=== PATIENT | female | born 1980 | race Caucasian/White ===

== ENCOUNTER 2018-02-13 16:18 | Inpatient (IN) | payer BC, OTHER ==
[~2018-02-13] VITALS: Ht 172.7 cm; Wt 54.4 kg
[2018-02-13] MEDS ORDERED: THIAMINE HCL 200 MG/2 ML VIAL IM ONE (18:15)
[2018-02-13] MEDS ORDERED: LOPERAMIDE HCL 2 MG CAPSULE PO PRN ×2 (18:15)
[2018-02-13] MEDS ORDERED: ONDANSETRON ODT 4 MG TAB.RAPDIS SL PRN (18:15)
[2018-02-13] MEDS ORDERED: DICYCLOMINE HCL 20 MG TABLET PO PRN (18:15)
[2018-02-13] MEDS ORDERED: LORAZEPAM 2 MG/1 ML VIAL IM PRN (18:15)
[2018-02-13] MEDS ORDERED: NICOTINE POLACRILEX 4 MG GUM-PK OF TEN BC PRN (18:15)
[2018-02-13] MEDS ORDERED: MAG HYDROX/AL HYDROX/SIMETH 30 ML LIQUID UDC PO PRN (18:15)
[2018-02-13] MEDS ORDERED: MAGNESIUM HYDROXIDE 30 ML LIQUID UDC PO PRN (18:15)
[2018-02-13] MEDS ORDERED: LORAZEPAM 1 MG TABLET PO PRN (18:15)
[2018-02-13] MEDS ORDERED: MIRALAX 17 GM POWD.PACK PO PRN (18:15)
[2018-02-13] MEDS ORDERED: ONDANSETRON 4 MG/2 ML VIAL IM PRN (18:15)
[2018-02-13] MEDS ORDERED: NICOTINE 14 MG/24HR PATCH TD PRN (18:15)
--- NOTE | 2018-02-13 18:40 | NUR ---
PRE ASSESSMENT PATIENT IS A 37 YR OLD FEMALE MET IN INTAKE OFFICE, PATIENT IS SITTING ON FLOOR RAKING THROUGH CLOTHES AND IS AGITATED AND IRRITABLE. BP 111/63, HR 109, O2 97% T 97.1 PAIN LEVEL IS 8/10 GENERALIZED BODY ACHES AND HEADACHE. PATIENT STATES SHE IS HERE BECAUSE SHE RELAPSED 8 DAYS AGO AFTER BEING IN TREATMENT FOR 30 DAYS. SHE STATES HER SUBSTANCE ABUSE : ALCOHOL A BOTTLE OF WINE OR A FEW COCKTAILS ON A NON DAILY BASIS HEROIN 0.5-1G SMOKE DAILY ( USED TODAY) METH O.5-1G SMOKE/INHALATION DAILY ( USED TODAY ) PATIENT STATES SHE DOES NOT HAVE A PCP, ASKED ABOUT SUICIDAL IDEATION AND SHE STATES " I KNOW THE ANSWER I NEED TO GIVE YOU FOR THAT......NO ". PATIENT IS EXTREMELY AGITATED. ASSESSMENT WILL BE CONTINUED WHEN PATIENT ARRIVES ON FLOOR .
[2018-02-13 19:22] LABS: BASOPHILS # (AUTO) 0.1 K/uL (0.0-8.0); BASOPHILS % (AUTO) 0.9 % (0.0-2.0); EOSINOPHILS # (AUTO) 0.1 K/uL (0.0-0.7); EOSINOPHILS % (AUTO) 1.3 % (0.0-7.0); HEMATOCRIT 41.3 % (31.2-41.9); HEMOGLOBIN 14.3 g/dL (10.9-14.3); LYMPHOCYTES # (AUTO) 2.5 K/uL (20.0-40.0); LYMPHOCYTES % (AUTO) 26.7 % (20.5-51.5); MEAN CORPUSCULAR HEMOGLOBIN 30.9 uug (24.7-32.8); MEAN CORPUSCULAR HGB CONC 35 g/dL (32.3-35.6); MEAN CORPUSCULAR VOLUME 89.2 fL (75.5-95.3); MONOCYTES # (AUTO) 0.4 K/uL (2.0-10.0); MONOCYTES % (AUTO) 4.4 % (0.0-11.0); NEUTROPHILS # (AUTO) 6.4 K/uL (1.8-8.9); NEUTROPHILS % (AUTO) 66.7 % (38.5-71.5); PLATELET COUNT (AUTO) 341 K/uL (179-408); RED BLOOD CELL COUNT(AUTO) 4.64 MIL/uL (3.63-4.92); WHITE BLOOD COUNT (AUTO) 9.5 K/uL (3.8-11.8)
[2018-02-13 19:30] LABS: ALANINE AMINOTRANSFERASE 17 U/L (14-59); ALKALINE PHOSPHATASE 47 U/L (50-136); AMYLASE 33 U/L (25-115); ASPARTATE AMINOTRANSFERASE 12 U/L (15-37); CARBON DIOXIDE 29 mmol/L (21-32); CHLORIDE 98 mmol/L (98-107); CREATININE 0.8 mg/dL (0.6-1.3); GLUCOSE 92 mg/dL (74-106); POTASSIUM 3.5 mmol/L (3.5-5.1); TOTAL PROTEIN, SERUM 7.7 g/dL (6.4-8.2); UREA NITROGEN, BLOOD 11 mg/dL (7-18)
[2018-02-13 19:32] LABS: ETHANOL < 3 MG/DL (0-0)
[2018-02-13 19:40] LABS: THYROID STIMULATING HORMONE 1.021 mIU/mL (0.358-3.740)
[2018-02-13] MEDS ORDERED: GUMMY VITAMINS PO (19:47)
[2018-02-13] MEDS ORDERED: LITH300C2 PO (19:47)
[2018-02-13] MEDS ORDERED: LACT1CAP69 PO (19:47)
[2018-02-13] MEDS ORDERED: DICY10CA13 PO (19:47)
[2018-02-13] MEDS ORDERED: OMEG-145 PO (19:47)
[2018-02-13] MEDS ORDERED: ETOD400T PO (19:47)
[2018-02-13] MEDS ORDERED: BENZ200C53 PO (19:47)
[2018-02-13] MEDS ORDERED: PAPA100T PO (19:47)
[2018-02-13] MEDS ORDERED: MENT1.1L MM (19:47)
[2018-02-13] MEDS ORDERED: FLUT9.9S NS (19:47)
[2018-02-13] MEDS ORDERED: SIME125C91 PO (19:47)
[2018-02-13] MEDS ORDERED: MENT1ADH TP (19:47)
[2018-02-13] MEDS ORDERED: GABA-534 PO (19:47)
[2018-02-13] MEDS ORDERED: FEXO-65 PO (19:47)
[2018-02-13] MEDS ORDERED: CLON0.1T PO (19:47)
[2018-02-13] MEDS ORDERED: MELA5TAB PO (19:47)
[2018-02-13] MEDS ORDERED: MAGN400C PO (19:47)
[2018-02-13] MEDS ORDERED: HYDR-3026 PO (19:47)
[2018-02-13] MEDS ORDERED: ATOM25CA PO (19:47)
[2018-02-13] MEDS ORDERED: CHOL100062 PO (19:47)
[2018-02-13] MEDS ORDERED: MENT8OIN TP (19:47)
[2018-02-13 20:00] VITALS: BP 108/68
--- NOTE | 2018-02-13 20:00 | NUR ---
ADMISSION NOTE HT=5 FEET; 8 INCHES. XD=427 POUNDS. B/P=108/68,T=97.6,P=112,R=18,O2 SAT= 100%. NKDA / NKFA COWS=9; CIWA=9 PT DOES NOT HAVE A PCP Admitting 37 year old female to [facility] medically supervised withdrawals form drinking alcohol and smoking/snorting heroin and meth. Pt reports drinking wine since the age of 12 years and she began using meth and heroin since this year.Pt stated that she is currently in a treatment program and relapsed approximately one week ago due to cravings.Pt has been drinking about 750 mls of wine on a daily basis,her last drink was 2 days ago.She also admits using meth and heroin,approximately 0.5 to 1 mg daily,last use being today.Longest period of sobriety was for 6 months from 2008 to 2014.Pt is alert and oriented x 4.Pt denies having any allergies or medical problems.Denies any hx of seizures.Hx of anxiety and bipolar disorder,takes [place].Skin is intact,warm and dry to touch;respirations are even and non labored,no SOB/wheezing noted; abdomen is soft and palpable with b/s present x 4.Pt placed on 1 :1 close observation for passive suicidal thoughts by MD.Pt denies having any suicidal/homicidal thoughts at this time,denies any A/V/H,C/O feeling anxious,restless,tired with head and body ache and just wants to sleep.Pt oriented to room and unit,care plan initiated,snack and fluids provided;Pt encouraged to increase fluid intake.MD is aware of admission.All safety measures in place;bed is locked in the lowest position with side rails up x 2;call light is within reach,sitter is at bedside;will continue to monitor. DETOX HX [facility] IN [place] FOR 30 DAYS IN AUGUST/SEPTEMBER. REHAB PLACE IN [place] FOR 30 DAYS,LAST MONTH.
[2018-02-13] MEDS ORDERED: FEXOFENADINE 180 MG PO PRN (20:15)
[2018-02-13] MEDS ORDERED: [UNRECOGNIZED DRUG - OTHER] PO PRN (20:15)
[2018-02-13] MEDS: diphenhydrAMINE 50 MG CAPSULE PO PRN (20:37)
[2018-02-13] MEDS: GABAPENTIN 300 MG CAPSULE PO SCH (20:37)
[2018-02-13] MEDS: CLONIDINE HCL 0.1 MG TABLET PO PRN (20:39)
--- NOTE | 2018-02-13 20:40 | NUR ---
PRN BENADRYL AND CLONIDINE GIVEN ORDERED FOR C/O INSOMNIA AND ANXIETY.WILL MONITOR FOR EFFECTIVENESS.
[2018-02-13] MEDS ORDERED: LORAZEPAM 1 MG TABLET PO SCH (21:00)
[2018-02-13] MEDS ORDERED: BUPRENORPHINE HCL 2 MG TAB.SUBL SL PRN (21:00)
--- NOTE | 2018-02-13 21:00 | NUR ---
MED REFUSAL PT REFUSED 2100 DOSE OF ATIVAN 2MG PO,SAID "I DON'T NEED IT".
--- NOTE | 2018-02-13 21:40 | NUR ---
PRN F/U PRN MEDS ARE EFFECTIVE.PT IS CALM AND RESTING IN BED WITH EYES CLOSED.BREATHING IS EVEN AND NON LABORED.SITTER IS AT BEDSIDE.WILL BE MONITORED FOR SAFETY.
[2018-02-14] VITALS: BP 89/50
--- NOTE | 2018-02-14 | NUR ---
COWS/CIWA DEFERRED DUE TO PT BEING ASLEEP.NO S/S OF DISTRESS NOTED.SITTER IS AT BEDSIDE.PT WILL BE MONITORED FOR SAFETY.
--- NOTE | 2018-02-14 04:00 | NUR ---
COWS/CIWA DEFERRED DUE TO PT BEING ASLEEP.NO S/S OF DISTRESS NOTED.SITTER IS AT BEDSIDE.PT WILL BE MONITORED FOR SAFETY.
--- NOTE | 2018-02-14 06:45 | NUR ---
END OF SHIFT Pt is 37 year old female asmitted to [facility] for medically supervised withdrawals form drinking alcohol and smoking/snorting heroin and meth.Pt denies having any allergies or medical problems.Denies any hx of seizures.Hx of anxiety and bipolar disorder. Pt was placed on 1 :1 close observation for passive suicidal thoughts by .Pt c/o increased anxiety,restlessness and insomnia.PRN Clonidine and Benadryl were given and were effective.Pt slept 10 hrs,fluid intake was 680 mls;Pt was unable to provide urine,urine needs to be collected ,will endorse to AM shift.Serum test is negative.Pt encouraged to increase fluid intake.All safety measures in place;bed is locked in the lowest position with side rails up x 2;call light is within reach,sitter is at bedside;will endorse care to AM shift nurse. Addendum: 02/14/18 at 0657 by RL RAMIREZ RN Pt provided urine specimen and is sent to lab.Will endorse to AM nurse.
[2018-02-14 07:19] LABS: *URINE HCG, QUAL NEGATIVE (NEGATIVE)
--- NOTE | 2018-02-14 07:20 | NUR ---
START OF SHIFT PT IS A 37 Y/O F ADMITTED YESTERDAY 02/13/18 FOR MEDICALLY SUPERVISED ETOH, OPIATE, AND METH WITHDRAWAL. PT IS ON PRN MEDICATIONS. PT HAS A 1:1 SITTER FOR PASSIVE SI. PT IS A/OX4, RESPIRATIONS EVEN AND UNLABORED, PT PRESENTS ANXIETY, RESTLESSNESS, HEADACHE, DIFFICULTY STAYING ASLEEP, ANHEDONIA, DYSHORIA. LAST COWS 9 AND CIWA 9 @1999. ENCOURAGED PT TO INCREASE FLUIDS TOLERATED TO FACILITATE IN DETOX. EDUCATED PT WITH PLAN OF CARE AND MED REGIMEN. SIDE RAILS UPX2, BED IN LOW POSITION, CALL LIGHT WITHIN REACH. SAFETY MEASURES IN PLACE. WILL CLOSELY MONITOR AND PROVIDE SUPPORT.
[2018-02-14 07:30] LABS: *AMPHETAMINE, URINE POSITIVE (NEGATIVE); *BARBITURATE, URINE NEGATIVE (NEGATIVE); *CANNABINOID, URINE NEGATIVE (NEGATIVE); *COCCAINE, URINE POSITIVE (NEGATIVE); *OPIATE, URINE POSITIVE (NEGATIVE); *PHENCYCLIDINE SCREEN,URINE NEGATIVE (NEGATIVE)
[2018-02-14 08:00] VITALS: BP 94/52
[2018-02-14] MEDS: FOLIC ACID 1 MG TABLET PO SCH (08:56)
[2018-02-14] MEDS: THIAMINE HCL 100 MG TABLET PO SCH (08:56)
[2018-02-14] MEDS: MULTIVITAMINS,THERAPEUTIC TABLET PO SCH (08:56)
[2018-02-14] MEDS: ACETAMINOPHEN 325 MG TABLET PO PRN ×2 (08:56→21:12)
[2018-02-14] MEDS: LORAZEPAM 1 MG TABLET PO PRN ×2 (08:56→21:13)
[2018-02-14] MEDS: GABAPENTIN 300 MG CAPSULE PO SCH ×3 (08:56→21:12)
--- NOTE | 2018-02-14 08:56 | NUR ---
PRN ATIVAN 1 MG PO PRN AND TYLENOL 650 MG PO PRN; PT C/O HIGH ANXIETY 7/10, AGITATION, RESTLESSNESS, CIWA 10, GENERALIZED BODY ACHES . WILL CLOSELY MONITOR AND REASSESS.
[2018-02-14] MEDS ORDERED: HYDROXYZINE PAMOATE 25 MG CAPSULE PO PRN (09:00)
[2018-02-14] MEDS ORDERED: TUBERCULIN,PURIF.PROT.DERIV. 5 TU/0.1 ML TEST ID ONE (09:00)
--- NOTE | 2018-02-14 10:15 | NUR ---
REASSESSMENT PT IS LAYING IN BED WITH EYES CLOSED, APPEARS TO BE SLEEPING. SITTER 1:1 AT BEDSIDE. SAFETY MEASURES IN PLACE. WILL CONTINUE TO MONITOR.
[2018-02-14 12:13] VITALS: BP 94/54
[2018-02-14 16:20] VITALS: BP 96/57
[2018-02-14] MEDS: METHOCARBAMOL 750 MG TABLET PO PRN (16:55)
[2018-02-14] MEDS: IBUPROFEN 600 MG TABLET PO PRN (16:55)
--- NOTE | 2018-02-14 16:55 | NUR ---
PRN IBUPROFEN 600 MG PO PRN AND ROBAXIN 750 MG PO PRN GIVEN FOR GENERALIZED BODY ACHES 7/10 AND MUSCLE SPASMS. PT CONTINUES ON A 1:1. WILL MONITOR AND REASSESS.
--- NOTE | 2018-02-14 17:55 | NUR ---
REASSESSMENT PT REPORTS GENERALIZED PAIN DECREASED TO 4/10. WILL CONTINUE TO MONITOR AND PROVIDE SUPPORT.
--- NOTE | 2018-02-14 18:52 | NUR ---
END OF SHIFT PT'S LAST COWS 9 AND CIWA 9 @1600. PT HAS HAD ATIVAN, TYLENOL, IBUPROFEN, ROBAXIN PRNS DURING SHIFT. PT HAS BEEN COMPLIANT WITH TX PLAN AND MED REGIMEN. PT CONTINUES TO HAVE A 1:1 SITTER FOR SI. FLUID INTAKE: 620 ML, VOIDED 0, BM 0. PT STATES SHE HASN'T VOIDED SINCE PROVIDING UDS LAST NIGHT. ENCOURAGED PT TO INCREASE FLUIDS TOLERATED TO PROMOTE HYDRATION AND TO FACILITATE IN DETOX. SAFETY MEASURE IN PLACE. WILL GIVE ENDORSEMENT TO TRUCK RAILROAD AND BUS MOTOR MECHANIC NURSE. Addendum: 02/14/18 at 1856 by DAVID RUIZ RN PT HAS ATE 25% OF MEALS. ENCOURAGED PT TO INCREASE CONSUMPTION OF FOOD.
--- NOTE | 2018-02-14 19:30 | NUR ---
START OF SHIFT Pt is 37 year old female admitted to [facility] for medically supervised withdrawals form drinking alcohol and smoking/snorting heroin and meth.Pt is on regular diet,NKA,full code status. Pt continues on 1 :1 close observation for passive suicidal thoughts .Received in room A/A/O X 4.Pt is pleasant on approach,states feeling better.Last COWS/CIWA = 9.Pt c/o mild anxiety,feeling tired with generalized body ache.Pt encouraged to increase fluid intake.All safety measures in place;bed is locked in the lowest position with side rails up x 2;call light is within reach,sitter is at bedside;will continue to monitor.
[2018-02-14 20:00] VITALS: BP 104/60
[2018-02-14] MEDS ORDERED: HYDR-3895 PO (20:49)
[2018-02-14] MEDS ORDERED: LITH300C4 PO (20:49)
[2018-02-14] MEDS ORDERED: DIPH50CA37 PO (20:49)
[2018-02-14] MEDS ORDERED: CLON0.1T14 PO (20:49)
[2018-02-14] MEDS ORDERED: GABA-534 PO (20:49)
[2018-02-14] MEDS ORDERED: METH-406 PO (20:49)
[2018-02-14] MEDS ORDERED: IBUP-1955 PO (20:49)
[2018-02-14] MEDS ORDERED: DICY20TA28 PO (20:49)
[2018-02-14] MEDS: LITHIUM CARBONATE 300 MG CAPSULE PO SCH (21:12)
--- NOTE | 2018-02-14 21:13 | NUR ---
PRN MEDS PRN TYLENOL GIVEN ORDERED FOR GENERAL BODYACHE.PRN ATIVAN 1 MG PO GIVEN FOR CIWA 8.WILL MONITOR FOR EFFECTIVENESS.
--- NOTE | 2018-02-14 22:15 | NUR ---
PT IS RESTING IN BED WITH EYES CLOSED,SLEEPING COMFORTABLY.SITTER IS AT BED SIDE.ALL SAFETY MEASURES IN PLACE,CALL LIGHT WITHIN REACH. WILL CONTINUE TO MONITOR.
[2018-02-15] VITALS: BP 90/55
--- NOTE | 2018-02-15 | NUR ---
CIWA DEFERRED PT IS RESTING IN BED WITH EYES CLOSED,SLEEPING COMFORTABLY.UNABLE TO ASSESS FOR CIWA AT THIS TIME.ALL SAFETY MEASURES IN PLACE,CALL LIGHT WITHIN REACH.SITTER IS AT BEDSIDE. WILL CONTINUE TO MONITOR.
[2018-02-15 04:00] VITALS: BP 80/50
--- NOTE | 2018-02-15 06:39 | NUR ---
END OF SHIFT Pt is 37 year old female admitted to [facility] for medically supervised withdrawals form drinking alcohol and smoking/snorting heroin and meth. Pt continues on 1 :1 close observation for passive suicidal thoughts.PRN meds Tylenol and Ativan were given and were effective.Pt slept 10 hrs,fluid intake was 950 mls; voided x 1.Pt encouraged to increase fluid intake.All safety measures in place;bed is locked in the lowest position with side rails up x 2;call light is within reach,sitter is at bedside;will endorse care to AM shift nurse.
--- NOTE | 2018-02-15 07:25 | NUR ---
START OF SHIFT PT IS A 37 Y/O F ADMITTED ON 02/13/18 FOR MEDICALLY SUPERVISED ETOH, OPIATE, AND METH WITHDRAWAL. PT IS ON PRN MEDICATIONS FOR MANAGEMENT OF WITHDRAWAL SYMPTOMS. PT HAS A 1:1 SITTER FOR PASSIVE SI. PT IS A/OX4, RESPIRATIONS EVEN AND UNLABORED, PT PRESENTS ANXIETY, RESTLESSNESS, EXTREME FATIGUE, HEADACHE, GENERALIZED BODY ACHES 8/10, ANHEDONIA, DYSHORIA. LAST COWS 8 AND CIWA 7 @1999. ENCOURAGED PT TO INCREASE FLUIDS TOLERATED TO FACILITATE IN DETOX AND HYDRATION. ENCOURAGED PT TO INCREASE FOOD INTAKE TOLERATED. EDUCATED PT WITH PLAN OF CARE AND MED REGIMEN. SIDE RAILS UPX2, BED IN LOW POSITION, CALL LIGHT WITHIN REACH. SAFETY MEASURES IN PLACE. WILL CLOSELY MONITOR AND PROVIDE SUPPORT.
[2018-02-15 08:00] VITALS: BP 111/78
[2018-02-15] MEDS: LORAZEPAM 1 MG TABLET PO PRN (08:58)
--- NOTE | 2018-02-15 08:58 | NUR ---
PRN ATIVAN 1 MG PO PRN GIVEN FOR CIWA 11. PT IS HIGHLY AGITATED, IRRITABLE AND ANXIOUS, PT IS IN TEARS, PT HAS SUDDEN EMOTIONAL OUTBURSTS. ASKED PT TO VERBALIZED FEELINGS; PT REMAINED QUIET AND STILL IN TEARS, WHILE HAVING HER HANDS COVERING HER FACE AND STATED, "I JUST NEED TO SLEEP AGAIN." 1:1 SITTER BY BEDSIDE. WILL CONTINUE TO MONITOR CLOSELY AND PROVIDE SUPPORT.
[2018-02-15] MEDS: FOLIC ACID 1 MG TABLET PO SCH (09:08)
[2018-02-15] MEDS: MULTIVITAMINS,THERAPEUTIC TABLET PO SCH (09:08)
[2018-02-15] MEDS: THIAMINE HCL 100 MG TABLET PO SCH (09:08)
[2018-02-15] MEDS: GABAPENTIN 300 MG CAPSULE PO SCH ×3 (09:08→20:33)
--- NOTE | 2018-02-15 09:58 | NUR ---
REASSESSMENT PT VERBALIZED MEDICATION WAS EFFECTIVE BUT PT STATES SHE FEELS VERY DEPRESSED. ENCOURAGED PT TO ATTEND GROUPS AND ACTIVITIES TO PROMOTE COPING SKILLS. ENCOURAGED PT TO VERBALIZED FEELINGS MORE. 1:1 SITTER AT BEDSIDE. SAFETY MEASURES IN PLACE. Addendum: 02/15/18 at 1202 by DAVID RUIZ RN DALL[facility] Arvizu
[2018-02-15 12:09] LABS: HEPATITIS B SURFACE AG Negative (Negative)
[2018-02-15 12:19] VITALS: BP 110/62
--- NOTE | 2018-02-15 12:27 | NUR ---
UPON EVAL PER THERAPIST PT VERBALIZED IF SHE HAS THE MEANS TO HURT HERSELF SHE WILL. MD MADE AWARE AND CRISIS EVAL TEAM WAS ALERTED. PT IS PLACED BACK ON 1:1 FOR SI.
[2018-02-15 16:12] VITALS: BP 100/59
--- NOTE | 2018-02-15 18:44 | NUR ---
END OF SHIFT LAST COW 8 AND CIWA 10 @1600. PT HAS BEEN GIVEN ATIVAN 1 MG PO PRN DURING SHIFT. PT HAS BEEN OFF 1:1 AND PUT BACK ON FOR SI. CRISIS TEAM TALKED WITH PT, PER ANGELA, PT HAS NO ACTIVE PLAN, AND CIRCUMSTANTIAL. PT HAS BEEN ISOLATIVE IN ROOM DURING SHIFT. PT IS MEDICALLY CLEARED TO BE DISCHARGED TOMORROW. PT ATE 50/50/100% OF MEAL. FLUID INTAKE: 2000 ML, VOIDED X2, BM 0. SAFETY MEASURES IN PLACE. WILL GIVE ENDORSEMENT TO SIZE ROLLER OPERATOR.
--- NOTE | 2018-02-15 19:30 | NUR ---
START OF SHIFT Received 37 year old female patient admitted on 02/13/18 for ETOH, Heroin and Methamphetamine withdrawal. Pt is alert and oriented x4. Pt complains of body aches, restlessness and insomnia. She is noted with flat affect and withdrawn behavior. Pt was not placed on a taper but has PRN mediations available. Per endorsement, she was seen by crisis team for suicidal ideations. She denied having an active plan. She is on a 1:1 for safety. She is scheduled to be DC tomorrow. Location is pending. Per endorsement she received PRN Ativan. Last COWS:8, CIWA:10 at 1600. Breathing is even and unlabored, safety measures in place. Will monitor.
[2018-02-15 20:00] VITALS: BP 105/60
[2018-02-15] MEDS: LITHIUM CARBONATE 300 MG CAPSULE PO SCH (20:33)
[2018-02-15] MEDS: diphenhydrAMINE 50 MG CAPSULE PO PRN (20:33)
--- NOTE | 2018-02-15 20:33 | NUR ---
PRN BENADRYL Pt complains of difficulty sleeping. PRN Benadryl administered as ordered. Will monitor effectiveness.
--- NOTE | 2018-02-15 21:33 | NUR ---
PRN REASSESSMENT Medication ineffective. Pt still awake, unable to fall sleep. Encouraged pt to try and relax, pt verbalized understanding. Will continue to monitor.
[2018-02-15] MEDS: CLONIDINE HCL 0.1 MG TABLET PO PRN (22:15)
--- NOTE | 2018-02-15 22:15 | NUR ---
PRN CLONIDINE Pt complains of anxiety and agitation. PRN Clonidine administered as ordered. Breathing even and unlabored, safety measures in place. Will monitor effectiveness.
--- NOTE | 2018-02-15 23:15 | NUR ---
PRN CLONIDINE REASSESSMENT PRN medication effective. Pt is lying in bed with eyes closed and is noted to be asleep. Breathing is even and unlabored, safety measures in place. Will continue to monitor.
--- NOTE | 2018-02-16 | NUR ---
VITALS REFUSED 0000 vitals refused d/t pt reported difficulty falling asleep. COWS/CIWA deferred d/t pt lying in bed with eyes closed and is asleep. Safety measures in place. Will monitor.
--- NOTE | 2018-02-16 04:00 | NUR ---
VITALS REFUSED 0400 vitals refused d/t pt reports difficulty falling asleep. COWS/CIWA deferred d/t pt lying in bed with eyes closed and is asleep. Safety measures in place. Will continue to monitor.
--- NOTE | 2018-02-16 07:06 | NUR ---
END OF SHIFT Pt is a 37 year old female patient admitted on 02/13/18 for ETOH, Heroin and Methamphetamine withdrawal. She remains alert and oriented x4. She had complaints of anxiety, body aches, restlessness and insomnia during the shift. Pt was not placed on a taper but has PRN mediations available. She is on a 1:1 for safety. She is scheduled to be DC today. Location is pending. At 2215 she received PRN Benadryl for insomnia and PRN Clonidine for anxiety/agitation. She slept a total of 9 hrs, Intake: 1,000mL, Void: x1, BM:0, COWS:9, CIWA:9 at 2000. Breathing is even and unlabored, safety measures in place. Endorsed to AM shift.
--- NOTE | 2018-02-16 07:23 | NUR ---
START OF SHIFT PT IS A 37 Y/O F ADMITTED ON 02/13/18 FOR MEDICALLY SUPERVISED ETOH, OPIATE, AND METH WITHDRAWAL. PT IS MEDICALLY CLEARED TO BE DISCHARGED TODAY. PT IS A/OX4, RESPIRATIONS EVEN AND UNLABORED, PT PRESENTS ANXIETY, AGITATION, RESTLESSNESS, EMOTIONAL AMPLITUDE, ANHEDONIA, DYSPHORIA. LAST COWS 9 AND CIWA 9 @1999. ENCOURAGED PT TO INCREASE FLUIDS TOLERATED FOR HYDRATION. ENCOURAGED PT TO INCREASE FOOD INTAKE TOLERATED. SIDE RAILS UPX2, BED IN LOW POSITION, CALL LIGHT WITHIN REACH. SAFETY MEASURES IN PLACE. WILL CLOSELY MONITOR AND PROVIDE SUPPORT.
[2018-02-16 08:00] VITALS: BP 91/57
[2018-02-16] MEDS: MULTIVITAMINS,THERAPEUTIC TABLET PO SCH (08:15)
[2018-02-16] MEDS: THIAMINE HCL 100 MG TABLET PO SCH (08:15)
[2018-02-16] MEDS: GABAPENTIN 300 MG CAPSULE PO SCH ×2 (08:15→14:16)
[2018-02-16] MEDS: FOLIC ACID 1 MG TABLET PO SCH (08:15)
[2018-02-16] MEDS: METHOCARBAMOL 750 MG TABLET PO PRN (08:19)
[2018-02-16] MEDS: IBUPROFEN 600 MG TABLET PO PRN (08:19)
--- NOTE | 2018-02-16 09:19 | NUR ---
REASSESSMENT PT REPORTED MEDS WERE EFFECTIVE HOWEVER PT STATES SHE STILL FEELS MINIMAL BODY ACHES. WILL CONTINUE TO MONITOR.
--- NOTE | 2018-02-16 09:51 | NUR ---
PRN ROBAXIN AND IBUPROFEN PO PRN FOR GENERALIZED BODY ACHES 04/19 PAIN. WILL MONITOR AND REASSESS. Addendum: 02/16/18 at 1019 by DAVID RUIZ RN CORRECT TIME 0819
--- NOTE | 2018-02-16 09:56 | NUR ---
Client was prompted to attend twice daily group counseling sessions.
[2018-02-16 12:27] VITALS: BP 99/53
--- NOTE | 2018-02-16 14:27 | NUR ---
DISCHARGE NOTE PT IS A/OX4, RESPIRATIONS EVEN AND UNLABORED, IN STABLE CONDITION, VS IS WNL. PT WAS BEEN GIVEN D/C INSTRUCTIONS AND PT VERBALIZED UNDERSTANDING. NOTIFIED OF PT D/C. LAST COWS 6 AND CIWA 7. PT HAS LEFT THE BUILDING AT 1427 ON 02/16/18 WITH ALL BELONGINGS, PRESCRIPTIONS AND D/C PAPERWORK. PT HAS BEEN PICKED UP BY [facility] AND HAS BEEN TAKEN TO [facility].
== END 2018-02-16 14:27 | disposition other institution (70) | DRG 895 ==
LOC: SRC 17:24
PROVIDERS: ADMIT Internal Medicine; ATTEND Internal Medicine
DX: F10.230 Alcohol dependence with withdrawal, uncomplicated (principal); F31.81 Bipolar II disorder; F11.23 Opioid dependence with withdrawal; Y90.0 Blood alcohol level of less than 20 mg/100 ml; F17.210 Nicotine dependence, cigarettes, uncomplicated; Z81.1 Family history of alcohol abuse and dependence; Z81.8 Family history of other mental and behavioral disorders; Z82.49 Family history of ischemic heart disease and other diseases of the circulatory system; F41.9 Anxiety disorder, unspecified; J20.9 Acute bronchitis, unspecified; F90.9 Attention-deficit hyperactivity disorder, unspecified type; F15.23 Other stimulant dependence with withdrawal; F14.90 Cocaine use, unspecified, uncomplicated
CPT/HCPCS: 36415; 70030-TC; 80307; 80324; 80346; 80353; 80361; 83735; 84443; 84703; 85025; 86592; 86705; 86803; 87340; 87806; G0480; Q0163

== ENCOUNTER 2018-02-25 21:36 | Inpatient (IN) | payer BC, OTHER ==
[~2018-02-25] VITALS: Ht 172.7 cm; Wt 56.7 kg
[~2018-02-25 21:36] MED LIST: CLON0.1T14 PO; DICY20TA28 PO; DIPH50CA37 PO; FEXO-65 PO; FLUT9.9S NS; GABA-534 PO; HYDR-3895 PO; IBUP-1955 PO; LITH300C4 PO; METH-406 PO
[2018-02-26 00:41] VITALS: BP 109/79
[2018-02-26] MEDS ORDERED: LORAZEPAM 1 MG TABLET PO PRN (00:45)
[2018-02-26] MEDS ORDERED: ONDANSETRON ODT 4 MG TAB.RAPDIS SL PRN (00:45)
[2018-02-26] MEDS ORDERED: CLONIDINE HCL 0.1 MG TABLET PO PRN (00:45)
[2018-02-26] MEDS ORDERED: MAG HYDROX/AL HYDROX/SIMETH 30 ML LIQUID UDC PO PRN (00:45)
[2018-02-26] MEDS ORDERED: LORAZEPAM 2 MG/1 ML VIAL IM PRN (00:45)
[2018-02-26] MEDS ORDERED: MAGNESIUM HYDROXIDE 30 ML LIQUID UDC PO PRN (00:45)
[2018-02-26] MEDS ORDERED: MIRALAX 17 GM POWD.PACK PO PRN (00:45)
[2018-02-26] MEDS ORDERED: BUPRENORPHINE HCL 2 MG TAB.SUBL SL PRN (00:45)
[2018-02-26] MEDS ORDERED: LOPERAMIDE HCL 2 MG CAPSULE PO PRN ×2 (00:45)
[2018-02-26] MEDS ORDERED: DICYCLOMINE HCL 20 MG TABLET PO PRN (00:45)
[2018-02-26] MEDS ORDERED: THIAMINE HCL 200 MG/2 ML VIAL IM ONE (00:45)
[2018-02-26] MEDS ORDERED: ONDANSETRON 4 MG/2 ML VIAL IM PRN (00:45)
[2018-02-26 00:53] LABS: *URINE HCG, QUAL NEGATIVE (NEGATIVE)
[2018-02-26 01:07] LABS: *AMPHETAMINE, URINE POSITIVE (NEGATIVE); *BARBITURATE, URINE NEGATIVE (NEGATIVE); *CANNABINOID, URINE NEGATIVE (NEGATIVE); *COCCAINE, URINE POSITIVE (NEGATIVE); *OPIATE, URINE NEGATIVE (NEGATIVE); *PHENCYCLIDINE SCREEN,URINE NEGATIVE (NEGATIVE)
[2018-02-26] MEDS: diphenhydrAMINE 50 MG CAPSULE PO PRN ×2 (02:01→20:57)
[2018-02-26] MEDS: ACETAMINOPHEN 325 MG TABLET PO PRN ×2 (02:08→08:47)
[2018-02-26 02:12] LABS: BASOPHILS # (AUTO) 0.1 K/uL (0.0-8.0); BASOPHILS % (AUTO) 0.9 % (0.0-2.0); EOSINOPHILS % (AUTO) 0.6 % (0.0-7.0); HEMATOCRIT 42.6 % (31.2-41.9); HEMOGLOBIN 14.9 g/dL (10.9-14.3); LYMPHOCYTES # (AUTO) 2.6 K/uL (20.0-40.0); LYMPHOCYTES % (AUTO) 40.9 % (20.5-51.5); MEAN CORPUSCULAR HEMOGLOBIN 31.3 uug (24.7-32.8); MEAN CORPUSCULAR HGB CONC 35 g/dL (32.3-35.6); MEAN CORPUSCULAR VOLUME 89.4 fL (75.5-95.3); MONOCYTES # (AUTO) 0.3 K/uL (2.0-10.0); MONOCYTES % (AUTO) 4.8 % (0.0-11.0); NEUTROPHILS # (AUTO) 3.4 K/uL (1.8-8.9); NEUTROPHILS % (AUTO) 52.8 % (38.5-71.5); PLATELET COUNT (AUTO) 287 K/uL (179-408); RED BLOOD CELL COUNT(AUTO) 4.76 MIL/uL (3.63-4.92); WHITE BLOOD COUNT (AUTO) 6.4 K/uL (3.8-11.8)
[2018-02-26] MEDS ORDERED: ATOM25CA PO (03:01)
[2018-02-26] MEDS ORDERED: MELA5TAB PO (03:01)
[2018-02-26] MEDS ORDERED: PAPA1TAB10 PO (03:01)
[2018-02-26] MEDS ORDERED: BENZ200C53 PO (03:01)
[2018-02-26] MEDS ORDERED: ETOD400T2 PO (03:01)
[2018-02-26] MEDS ORDERED: CHOL200078 PO (03:01)
[2018-02-26] MEDS ORDERED: MAGN400C PO (03:01)
[2018-02-26 03:05] LABS: ALANINE AMINOTRANSFERASE 17 U/L (14-59); ALKALINE PHOSPHATASE 50 U/L (50-136); AMYLASE 25 U/L (25-115); ASPARTATE AMINOTRANSFERASE 14 U/L (15-37); BILIRUBIN,TOTAL 1.1 mg/dL (0.2-1.0); CARBON DIOXIDE 29 mmol/L (21-32); CHLORIDE 102 mmol/L (98-107); CREATININE 0.9 mg/dL (0.6-1.3); GLUCOSE 102 mg/dL (74-106); LIPASE 106 U/L (73-393); MAGNESIUM 1.9 mg/dL (1.8-2.4); POTASSIUM 3.1 mmol/L (3.5-5.1); TOTAL PROTEIN, SERUM 7.6 g/dL (6.4-8.2); UREA NITROGEN, BLOOD 6 mg/dL (7-18)
[2018-02-26 03:08] LABS: ETHANOL < 3 MG/DL (0-0)
[2018-02-26 03:10] LABS: THYROID STIMULATING HORMONE 1.821 mIU/mL (0.358-3.740)
[2018-02-26] MEDS ORDERED: SIME125C81 PO (03:17)
[2018-02-26] MEDS ORDERED: MULT-1045 PO (03:17)
[2018-02-26] MEDS ORDERED: SACC250C8 PO (03:17)
[2018-02-26] MEDS ORDERED: MENT1ADH TP (03:17)
[2018-02-26] MEDS ORDERED: MENT4OIN TP (03:17)
[2018-02-26] MEDS ORDERED: OMEG1CAP GT (03:17)
[2018-02-26 04:00] VITALS: BP 97/58
[2018-02-26 08:42] VITALS: BP 105/68
[2018-02-26] MEDS: FOLIC ACID 1 MG TABLET PO SCH (08:44)
[2018-02-26] MEDS: THIAMINE HCL 100 MG TABLET PO SCH (08:44)
[2018-02-26] MEDS: MULTIVITAMINS,THERAPEUTIC TABLET PO SCH (08:44)
[2018-02-26] MEDS: METHOCARBAMOL 750 MG TABLET PO PRN ×2 (08:47→20:57)
[2018-02-26] MEDS: LORAZEPAM 1 MG TABLET PO PRN ×3 (08:47→18:07)
[2018-02-26] MEDS ORDERED: POTASSIUM CHLORIDE 20 MEQ TAB.PRT.SR PO ONE ×2 (09:00→13:00)
[2018-02-26] MEDS: LITHIUM CARBONATE 300 MG CAPSULE PO SCH ×2 (12:19→20:57)
[2018-02-26 12:40] VITALS: BP 109/66
[2018-02-26] MEDS: GABAPENTIN 300 MG CAPSULE PO SCH ×2 (14:04→20:57)
[2018-02-26 17:58] VITALS: BP 118/71
[2018-02-26] MEDS ORDERED: METH-406 PO (18:01)
[2018-02-26] MEDS ORDERED: DIPH50CA37 PO (18:01)
[2018-02-26] MEDS ORDERED: DICY20TA28 PO (18:01)
[2018-02-26] MEDS ORDERED: GABA-534 PO (18:01)
[2018-02-26] MEDS ORDERED: IBUP-1955 PO (18:01)
[2018-02-26] MEDS ORDERED: CLON0.1T14 PO (18:01)
[2018-02-26 20:00] VITALS: BP 107/65
[2018-02-27] VITALS: BP 107/69
[2018-02-27 04:00] VITALS: BP 106/67
[2018-02-27 08:00] VITALS: BP 119/70
[2018-02-27] MEDS: FOLIC ACID 1 MG TABLET PO SCH (08:21)
[2018-02-27] MEDS: MULTIVITAMINS,THERAPEUTIC TABLET PO SCH (08:21)
[2018-02-27] MEDS: LITHIUM CARBONATE 300 MG CAPSULE PO SCH ×2 (08:21→21:04)
[2018-02-27] MEDS: GABAPENTIN 300 MG CAPSULE PO SCH ×3 (08:21→21:04)
[2018-02-27] MEDS: THIAMINE HCL 100 MG TABLET PO SCH (08:21)
[2018-02-27] MEDS: IBUPROFEN 600 MG TABLET PO PRN (08:21)
[2018-02-27] MEDS ORDERED: TUBERCULIN,PURIF.PROT.DERIV. 5 TU/0.1 ML TEST ID ONE ×2 (09:00)
[2018-02-27] MEDS ORDERED: LORAZEPAM 1 MG TABLET PO ONE (11:15)
[2018-02-27 12:00] VITALS: BP 123/73
[2018-02-27] MEDS ORDERED: LORAZEPAM 1 MG TABLET PO PRN ×2 (12:00)
[2018-02-27] MEDS: LORAZEPAM 1 MG TABLET PO SCH ×2 (14:14→21:04)
[2018-02-27 16:00] VITALS: BP 109/71
[2018-02-27 20:00] VITALS: BP 120/75
[2018-02-27] MEDS: CLONIDINE HCL 0.1 MG TABLET PO SCH (21:04)
[2018-02-28] VITALS: BP 102/66
[2018-02-28 04:00] VITALS: BP 94/52
[2018-02-28 08:00] VITALS: BP 114/72
[2018-02-28] MEDS: THIAMINE HCL 100 MG TABLET PO SCH (08:38)
[2018-02-28] MEDS: MULTIVITAMINS,THERAPEUTIC TABLET PO SCH (08:38)
[2018-02-28] MEDS: FOLIC ACID 1 MG TABLET PO SCH (08:38)
[2018-02-28] MEDS: GABAPENTIN 300 MG CAPSULE PO SCH ×3 (08:38→20:17)
[2018-02-28] MEDS: LITHIUM CARBONATE 300 MG CAPSULE PO SCH ×2 (08:38→20:13)
[2018-02-28] MEDS: CLONIDINE HCL 0.1 MG TABLET PO SCH ×3 (08:39→20:15)
[2018-02-28] MEDS ORDERED: LORAZEPAM 1 MG TABLET PO SCH (09:00)
[2018-02-28 12:00] VITALS: BP 107/61
[2018-02-28 16:00] VITALS: BP 129/66
[2018-02-28 16:07] LABS: HEPATITIS B SURFACE AG Negative (Negative)
[2018-02-28 20:00] VITALS: BP 102/63
[2018-02-28] MEDS: diphenhydrAMINE 50 MG CAPSULE PO PRN (20:13)
[2018-02-28] MEDS: ACETAMINOPHEN 325 MG TABLET PO PRN (20:13)
[2018-03-01 08:00] VITALS: BP 112/65
[2018-03-01] MEDS: LITHIUM CARBONATE 300 MG CAPSULE PO SCH (08:07)
[2018-03-01] MEDS: THIAMINE HCL 100 MG TABLET PO SCH (08:07)
[2018-03-01] MEDS: GABAPENTIN 300 MG CAPSULE PO SCH (08:07)
[2018-03-01] MEDS: FOLIC ACID 1 MG TABLET PO SCH (08:07)
[2018-03-01] MEDS: MULTIVITAMINS,THERAPEUTIC TABLET PO SCH (08:07)
[2018-03-01] MEDS: IBUPROFEN 600 MG TABLET PO PRN (08:21)
[2018-03-01 08:22] VITALS: BP 112/65
[2018-03-01] MEDS: CLONIDINE HCL 0.1 MG TABLET PO SCH (08:22)
== END 2018-03-01 09:40 | DRG 895 ==
LOC: SRC 02-26 00:21
PROVIDERS: ADMIT Internal Medicine; ATTEND Internal Medicine
PROC: HZ2ZZZZ Detoxification Services for Substance Abuse Treatment (ICD-10-PCS; principal; 2018-02-26)
PROC: HZ41ZZZ Group Counseling for Substance Abuse Treatment, Behavioral (ICD-10-PCS; principal; 2018-02-26)
PROC: HZ31ZZZ Individual Counseling for Substance Abuse Treatment, Behavioral (ICD-10-PCS; 2018-02-28)
DX: F10.230 Alcohol dependence with withdrawal, uncomplicated (principal); F14.20 Cocaine dependence, uncomplicated; F15.20 Other stimulant dependence, uncomplicated; F31.81 Bipolar II disorder; R17 Unspecified jaundice; F11.23 Opioid dependence with withdrawal; Y90.9 Presence of alcohol in blood, level not specified; F13.230 Sedative, hypnotic or anxiolytic dependence with withdrawal, uncomplicated; F41.9 Anxiety disorder, unspecified; F90.9 Attention-deficit hyperactivity disorder, unspecified type; Z81.1 Family history of alcohol abuse and dependence; Z82.49 Family history of ischemic heart disease and other diseases of the circulatory system; Z81.8 Family history of other mental and behavioral disorders; F17.210 Nicotine dependence, cigarettes, uncomplicated; Z79.899 Other long term (current) drug therapy; Z91.14 Patient's other noncompliance with medication regimen; E87.6 Hypokalemia
CPT/HCPCS: 36415; 70030-TC; 80307; 80324; 80346; 80353; 83690; 83735; 84443; 84703; 85025; 86580; 86592; 86705; 86803; 87340; 87806; A4663; G0480; Q0163